=== PATIENT | male | born 2000 | race Caucasian/White ===

== ENCOUNTER 2020-07-27 09:35 | Emergency (ER) | payer OTHER ==
[~2020-07-27] VITALS: Ht 172.7 cm; Wt 77.1 kg
[2020-07-27 10:27] LABS: ABSOLUTE NEUTROPHILS 9.1 thou/uL (1.4-8.2); BASOPHILS 0.4 % (0.0-2.0); EOSINOPHILS 0.7 % (0.0-3.0); HEMATOCRIT 46.9 % (42.0-52.0); HEMOGLOBIN 15.7 gm/dL (14.0-18.0); LYMPHOCYTES 11.7 % (24.0-44.0); MCHC 33.6 g/dL (28.0-37.0); MCV 92.2 fL (80.0-100.0); MONOCYTES 8.1 % (1.0-8.0); PLATELET COUNT 317 thou/uL (150-400); POLYS 79.1 % (36.0-66.0); RBC 5.08 mil/uL (4.50-6.00); RDW 13.1 % (10.5-14.5); WBC 11.5 thou/uL (4.0-11.0)
[2020-07-27 10:46] LABS: CALCIUM 9.4 mg/dL (8.5-10.1); POTASSIUM 4.3 mmol/L (3.5-5.1)
[2020-07-27 11:53] VITALS: BP 118/83
== END 2020-07-27 13:06 | disposition home or self-care (01) ==
LOC: ER 09:35
PROVIDERS: Emergency Medicine
DX: S06.0X0A Concussion without loss of consciousness, initial encounter (principal); S16.1XXA Strain of muscle, fascia and tendon at neck level, initial encounter; Z88.0 Allergy status to penicillin; Z88.2 Allergy status to sulfonamides; Z88.8 Allergy status to other drugs, medicaments and biological substances; V43.52XA Car driver injured in collision with other type car in traffic accident, initial encounter; Y93.89 Activity, other specified; Y92.89 Other specified places as the place of occurrence of the external cause; Y99.8 Other external cause status